=== PATIENT | female | born 1960 | race Caucasian/White ===

== ENCOUNTER 2017-05-27 08:03 | Outpatient (CLI) | payer BC ==
--- NOTE | 2017-05-27 17:17 | MRI Report ---
EXAM: RIGHT KNEE MRI WITHOUT CONTRAST EXAM DATE: 05/27/2017 09:57 AM. CLINICAL HISTORY: Right knee pain. Sudden onset 10 days ago. COMPARISON: None. TECHNIQUE: Multiplanar, multisequence T1-weighted and fluid-sensitive sequences of the knee without c ontrast. Other: None. FINDINGS: Bones and articular cartilage: Mild focal subcortical marrow edema and grade 2 chondromalacia at the medial patellar facet. Tiny partial-thickness articular cartilage fissure at the lateral patellar fac et. Focal moderate to severe cartilage thinning and a small subchondral osteophyte at the posterior s uperior nonweightbearing aspect of the lateral femoral condyle. Grade 2 chondromalacia at the medial femoral condyle. Enthesophytes at the anterosuperior aspect of the patella Medial Meniscus: The medial meniscus is intact. Lateral Meniscus: The lateral meniscus is intact. Cruciate Ligaments: The anterior and posterior cruciate ligaments are intact. Collateral Ligaments: The medial collateral and lateral collateral ligamentous structures are intact. Tendons: Mild tendinosis of the quadriceps tendon. Patellar tendon is unremarkable. Semimembranosus a nd popliteus tendons are unremarkable. Musculature: No edema or fatty atrophy. Other: Very small joint effusion. No popliteal cyst. No loose bodies. The medial and lateral retinac florencia are intact. The subcutaneous tissues and fat pads are unremarkable. IMPRESSION: 1. Tricompartmental chondromalacia as described above. 2. No evidence of ligament or meniscal injury. 3. Mild quadriceps tendinosis. 4. Very small joint effusion. [facility] MUSCULOSKELETAL RADIOLOGY SECTION Referring Provider Line: [phone] SITE ID: [id number]
== END 2017-05-27 08:04 | disposition home or self-care (01) ==
LOC: DI 08:03
PROVIDERS: ATTEND Internal Medicine
DX: M94.261 Chondromalacia, right knee (principal); M25.461 Effusion, right knee

== ENCOUNTER 2017-06-03 11:34 | Outpatient (CLI) | payer BC ==
--- NOTE | 2017-06-04 17:49 | Mammography Report ---
DIGITAL SCREENING MAMMOGRAM: 06/03/2017 CLINICAL INDICATION: A 57-year-old nulliparous patient with family history of breast cancer for scre ening. COMPARISON: 05/2016, 05/2015, 04/2014, 10/2012. TECHNIQUE: Routine CC and MLO projections as well as bilateral laterally exaggerated craniocaudal vi ews were obtained of the breasts. The breasts again demonstrate heterogeneously dense fibroglandular parenchyma bilaterally. Coarse an d punctate, typically benign calcifications are present. No suspicious masses, clustered microcalcif ications, or regions of architectural distortion are identified. IMPRESSION: BENIGN FINDINGS. RECOMMENDATION: ROUTINE ANNUAL SCREENING UNLESS OTHERWISE CLINICALLY INDICATED. BIRADS CATEGORY: 2, BENIGN FINDINGS. STANDARD QUALIFYING STATEMENTS 1. This examination was reviewed with the aid of Computed-Aided Detection (CAD). 2. A negative or benign imaging report should not delay biopsy if clinically suspicious findings are present. Consider surgical consultation if warranted. More than 5% of cancers are not identified b y imaging. 3. Dense breasts may obscure an underlying neoplasm. JOB #: [id number] EXT JOB #:[id number]
== END 2017-06-03 11:35 | disposition home or self-care (01) ==
LOC: DI.S 11:34
PROVIDERS: ATTEND Internal Medicine
DX: Z12.31 Encounter for screening mammogram for malignant neoplasm of breast (principal); Z80.3 Family history of malignant neoplasm of breast
CPT/HCPCS: 77067

== ENCOUNTER 2017-06-03 11:36 | Outpatient (CLI) | payer BC ==
--- NOTE | 2017-06-03 14:18 | XRAY Report ---
THREE-VIEW RIGHT KNEE: 06/03/2017 CLINICAL HISTORY: Pain. FINDINGS: AP, lateral, sunrise views of the right knee demonstrate no evidence of fracture or disloc ation. No effusion is present. The joint spaces appear unremarkable. IMPRESSION: NORMAL RIGHT KNEE. JOB #: [id number] EXT JOB #:[id number]
== END 2017-06-03 11:37 | disposition home or self-care (01) ==
LOC: DI.S 11:36
PROVIDERS: ATTEND Orthopaedic Surgery
DX: M25.561 Pain in right knee (principal)

== ENCOUNTER 2018-02-01 17:06 | Outpatient (CLI) | payer OTHER ==
--- NOTE | 2018-02-02 10:50 | XRAY Report ---
RIGHT HIP AND PELVIS: 02/01/2018 INDICATION: Right hip pain. FINDINGS: Frontal view of the hips and pelvis and frogleg lateral view of the right hip demonstrate no evidence of fracture or dislocation. Mild osteoarthritis is present. No foreign body is seen in the soft tissues. IMPRESSION: MILD RIGHT HIP OSTEOARTHRITIS. TD: 02/02/2018 10:49
--- NOTE | 2018-02-02 10:50 | XRAY Report ---
TWO VIEW LUMBAR SPINE: 02/01/2018 CLINICAL INDICATION: Pain. FINDINGS: AP, lateral views of the lumbar spine demonstrate mild degenerative disk disease and moderate facet arthropathy. Minimal levoscoliosis is present. There is no evidence of compression fracture. The bowel gas pattern appears unremarkable. There is a 4 mm calcification overlying the left renal shadow, suspicious for nephrolithiasis. IMPRESSION: DEGENERATIVE CHANGES IN THE LUMBAR SPINE. LIKELY LEFT NEPHROLITHIASIS. TD: 02/02/2018 10:49
== END 2018-02-01 17:07 | disposition home or self-care (01) ==
LOC: DI 17:06
PROVIDERS: ATTEND Internal Medicine
DX: M51.36 Other intervertebral disc degeneration, lumbar region (principal); M47.896 Other spondylosis, lumbar region; M16.11 Unilateral primary osteoarthritis, right hip
CPT/HCPCS: 72100

== ENCOUNTER 2018-05-11 07:42 | Outpatient (CLI) | payer OTHER ==
--- NOTE | 2018-05-11 14:55 | MRI Report ---
Procedure Date: 05/11/2018 Accession Number: [id number] / [id number] Procedure: MRI - Lumbar Spine W/O CPT Code: FULL RESULT: EXAM: MRI LUMBAR SPINE WITHOUT CONTRAST EXAM DATE: 05/11/2018 08:31 AM. CLINICAL HISTORY: Sciatica. COMPARISON: Lumbar spine radiographs 02/01/2018. TECHNIQUE: Multiplanar, multisequence T1-weighted and fluid-sensitive sequences of the lumbar spine without contrast. Other: None. FINDINGS: On the comparison radiographs incompletely visualized is an at least 12 mm T2 hypointense focus which appears to demonstrate some T1 shortening in the right kidney on the last image of the examination. The distal tip of the conus medullaris is seen at the level of the L2 vertebral body. No suspicious marrow replacement is present. Minimal grade 1 anterolisthesis of L5 relative to S1 and L4 relative to L5 is present. T10 through T12: No posterior disk protrusion. T12-L1: A minimal subligamentous central disk protrusion is seen. L1-L2: No posterior disk protrusion. L2-L3: A minimal posterior disk protrusion is seen. Superimposed is a shallow protrusion on the right involving the far lateral aspect of the foramen and far lateral margin of the disk. Disk material attenuates the fat surrounding the right L2 nerve root after it exits the foramen. No central canal or foraminal stenosis is present. L3-L4: A minimal shallow foraminal protrusion is seen bilaterally, greater on the left relative to the right. There is a far lateral component to the disk protrusion on the left. No central canal or foraminal stenosis is present. L4-L5: A shallow left posterolateral, foraminal, and far lateral protrusion is seen. There is left foraminal narrowing without overt foraminal stenosis. Disk material attenuates the fat surrounding the left L4 nerve root as it exits the foramen. Superior lateral recess stenosis is seen on the left. L5-S1: A mild broad-based posterior disk protrusion is seen. This is greatest in the midline. No foraminal stenosis is present. Facet/ligamentum flavum hypertrophy is seen throughout the lumbar spine, greatest in the mid and lower lumbar spine. IMPRESSION: 1. Minimal degenerative disk disease is seen at T12-L1 and from L2 through L5. 2. Mild degenerative disk disease is seen at L5-S1. 3. A far lateral disk protrusion on the left at L4-L5 attenuates the fat surrounding the L4 nerve root after it exits the foramen. 4. A far lateral component to the disk protrusion at L2-L3 on the right attenuates the fat surrounding the right L2 nerve root after it exits the foramen. 5. Superior lateral recess stenosis is seen on the left at L4-L5. 6. A T2 hypointense mass is present in the right kidney. This is not the typical appearance of a simple renal cortical cyst. This could reflect a hemorrhagic or proteinaceous cyst. Renal ultrasound would be advised to exclude a solid renal lesion in the right kidney. 7. 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 Comment: The following findings are so common in adults without low back pain that while we report their presence, they must be interpreted with caution and in the context of the clinical situation. (Reference Dalik et al, Spine 2001) Prevalence of findings in patients without low back pain: Disk degeneration (any evidence): 92% Disk desiccation/T2 signal loss: 83% Disk height loss: 56% Disk bulge: 64% Disk protrusion: 32% Annular tear/high intensity zone: 38% [facility]
== END 2018-05-11 07:43 | disposition home or self-care (01) ==
LOC: DI 07:42
PROVIDERS: ATTEND Internal Medicine
DX: M51.26 Other intervertebral disc displacement, lumbar region (principal); M51.36 Other intervertebral disc degeneration, lumbar region; M51.25 Other intervertebral disc displacement, thoracolumbar region; M51.35 Other intervertebral disc degeneration, thoracolumbar region; M51.37 Other intervertebral disc degeneration, lumbosacral region; N28.89 Other specified disorders of kidney and ureter; I72.3 Aneurysm of iliac artery
CPT/HCPCS: 72148

== ENCOUNTER 2018-07-19 15:00 | Outpatient (CLI) | payer OTHER ==
--- NOTE | 2018-07-20 14:56 | Mammography Report ---
Reason: SCREENING MAMMO Procedure Date: 07/19/2018 Accession Number: [id number] / [id number] Procedure: JEF - Screening Mammo Dig Bilat CPT Code: FULL RESULT: EXAM: Screening Mammo Dig Bilat DATE: 07/19/2018 3:28 PM CLINICAL HISTORY: Screening mammogram TECHNIQUE: Bilateral CC and MLO views were obtained. COMPARISON: Mammogram 06/03/2017 FINDINGS: The breast parenchyma is heterogeneously dense which may limit the sensitivity of mammography. No suspicious masses, clustered microcalcifications, or regions of architectural distortion are identified. There are benign-appearing lymph nodes. IMPRESSION: Benign findings RECOMMENDATION: Routine annual screening unless otherwise clinically indicated. BIRADS CATEGORY 2: Benign findings STANDARD QUALIFYING STATEMENTS: 1. This examination was reviewed with the aid of Computer-Aided Detection (CAD). 2. A negative or benign imaging report should not delay biopsy if clinically suspicious findings are present. Consider surgical consultation if warrented. More than 5% of cancers are not identified by imaging. 3. Dense breasts may obscure an underlying neoplasm.
== END 2018-07-19 15:01 | disposition home or self-care (01) ==
LOC: DI 15:00
PROVIDERS: ATTEND Internal Medicine
DX: Z12.31 Encounter for screening mammogram for malignant neoplasm of breast (principal)
CPT/HCPCS: 77067

== ENCOUNTER 2019-07-14 07:18 | Outpatient (CLI) | payer OTHER ==
[2019-07-14 10:07] LABS: BASOPHILS % (AUTO) 0.2 %; EOSINOPHILS # (AUTO) 0.1 10^3/uL (0.0-0.7); EOSINOPHILS % (AUTO) 2.2 %; HGB - HEMOGLOBIN 16.3 g/dL (12.0-16.0); LYMPHOCYTES # (AUTO) 1.7 10^3/uL (1.5-3.5); LYMPHOCYTES % (AUTO) 34.1 %; MEAN CORPUSCULAR HEMOGLOBIN 30.8 pg (27.0-31.0); MEAN CORPUSCULAR HGB CONC 34.3 g/dL (32.0-36.0); MEAN CORPUSCULAR VOLUME 89.6 fL (81.0-99.0); MEAN PLATELET VOLUME 9.9 fL (7.9-10.8); MONOCYTES # (AUTO) 0.5 10^3/uL (0.0-1.0); MONOCYTES % (AUTO) 10.4 %; NEUTROPHILS # (AUTO) 2.7 10^3/uL (1.5-6.6); NEUTROPHILS % (AUTO) 52.7 %; PLT - PLATELET COUNT 170 10^3/uL (130-450); RED CELL DISTRIBUTION WIDTH 13.1 % (12.0-15.0); WHITE BLOOD COUNT 5.1 x10^3/uL (4.8-10.8)
[2019-07-14 13:57] LABS: HEMOGLOBIN A1C 0.54 g/dL; HEMOGLOBIN A1C % 5.1 % (4.6-6.2)
[2019-07-14 14:39] LABS: ALBUMIN 4.7 g/dL (3.2-5.5); ALKALINE PHOSPHATASE 64 IU/L (42-121); ALT ALANINE AMINOTRANSFERASE 15 IU/L (10-60); AST ASPARTATE AMINOTRANSFERASE 18 IU/L (10-42); BILIRUBIN,TOTAL 0.7 mg/dL (0.2-1.0); BUN - BLOOD UREA NITROGEN 15 mg/dL (6-20); CALCIUM 9.5 mg/dL (8.5-10.3); CARBON DIOXIDE - CO2 29 mmol/L (21-32); CHLORIDE 102 mmol/L (101-111); CHOL/HDL RATIO 3.8 (<4.4); CHOLESTEROL 145 mg/dL; CK- CREATINE KINASE 55 IU/L (22-269); CREATININE 0.8 mg/dL (0.4-1.0); GFR - MDRD 73 (>89); GLUCOSE 96 mg/dL (70-100); HDL CHOLESTEROL 38 mg/dL; LDL CHOLESTEROL,CALCULATED 83 mg/dL; LDL/HDL RATIO 2.2 (<4.4); SODIUM 139 mmol/L (135-145); URIC ACID 6.7 mg/dL (2.6-7.2); VLDL CHOLESTEROL 24 mg/dL
== END 2019-07-14 07:19 | disposition home or self-care (01) ==
LOC: LAB.S 07:18
PROVIDERS: ATTEND Internal Medicine
DX: E78.5 Hyperlipidemia, unspecified (principal); I10 Essential (primary) hypertension; R73.01 Impaired fasting glucose; N20.0 Calculus of kidney; L71.9 Rosacea, unspecified; Z79.899 Other long term (current) drug therapy; M10.9 Gout, unspecified; M81.0 Age-related osteoporosis without current pathological fracture; F41.9 Anxiety disorder, unspecified; F32.9 Major depressive disorder, single episode, unspecified; R00.1 Bradycardia, unspecified; Z12.11 Encounter for screening for malignant neoplasm of colon; Z12.12 Encounter for screening for malignant neoplasm of rectum; Z13.6 Encounter for screening for cardiovascular disorders
CPT/HCPCS: 36415; 80053; 80061; 82306; 82550; 83036; 83721; 84443; 84550; 85025

== ENCOUNTER 2019-07-28 08:00 | Outpatient (CLI) | payer OTHER | END 2019-07-28 23:59 | disposition home or self-care (01) | LOC: LAB.R 08:00 | PROVIDERS: ATTEND Internal Medicine | DX: Z12.11 Encounter for screening for malignant neoplasm of colon (principal); Z12.12 Encounter for screening for malignant neoplasm of rectum; Z79.899 Other long term (current) drug therapy; F41.9 Anxiety disorder, unspecified; M10.9 Gout, unspecified; L71.9 Rosacea, unspecified; I10 Essential (primary) hypertension; F32.9 Major depressive disorder, single episode, unspecified; Z13.6 Encounter for screening for cardiovascular disorders; R00.1 Bradycardia, unspecified | CPT/HCPCS: 82274 ==

== ENCOUNTER 2019-07-28 13:45 | Outpatient (CLI) | payer OTHER ==
--- NOTE | 2019-07-28 15:13 | Mammography Report ---
Reason: SCREENING MAMMO Procedure Date: 07/28/2019 Accession Number: [id number] / [id number] Procedure: JEF - Screening Mammo w/Jack CPT Code: FULL RESULT: EXAM: Screening Mammo w/Jack DATE: 07/28/2019 2:33 PM CLINICAL HISTORY: Routine screening. Nulliparous patient. TECHNIQUE: (B) - Bilateral CC and MLO views were obtained. COMPARISON: 07/19/2018, 06/03/2017, 05/15/2016 and 05/22/2015 PARENCHYMAL PATTERN: (A) - The breasts demonstrate scattered fibroglandular densities bilaterally. FINDINGS: On the left no significant interval change. There are no suspicious masses, calcifications, or areas of distortion. On the right a small nodular density in the 9:00 position 2 cm from the nipple is more apparent than on preceding studies. Additional evaluation by spot compression and true lateral views and possible ultrasound is suggested. No suspicious microcalcifications or architectural distortion on the right IMPRESSION: Incomplete examination. BI-RADS category 0. Needs additional evaluation right breast. Negative left breast. RECOMMENDATION: (AD[facility]) - Additional views using both Mammography and Ultrasound recommended. Right breast BI-RADS CATEGORY: (0) - Incomplete Examination - need additional evaluation. STANDARD QUALIFYING STATEMENTS: 1. This examination was not reviewed with the aid of Computer-Aided Detection (CAD). 2. A negative or benign imaging report should not preclude biopsy if clinically suspicious findings are present. 3. Dense breasts may obscure an underlying neoplasm. 4. This examination was reviewed with the aid of 3D breast imaging (tomosynthesis).
== END 2019-07-28 13:46 | disposition home or self-care (01) ==
LOC: DI 13:45
PROVIDERS: ATTEND Internal Medicine
DX: Z12.31 Encounter for screening mammogram for malignant neoplasm of breast (principal); R92.8 Other abnormal and inconclusive findings on diagnostic imaging of breast
CPT/HCPCS: 77063; 77067

== ENCOUNTER 2019-08-05 10:25 | Outpatient (CLI) | payer OTHER ==
--- NOTE | 2019-08-05 15:09 | Mammography Report ---
Reason: ABNORMAL MAMMO Procedure Date: 08/05/2019 Accession Number: [id number] / [id number] Procedure: JEF - Diag Special Views Dig RT CPT Code: FULL RESULT: EXAM: Diag Special Views Dig RT DATE: 08/05/2019 11:32 AM CLINICAL HISTORY: Diagnostic examination. The patient is recalled from screening for right breast nodule. TECHNIQUE: (R) - Right right spot CC, spot MLO and right ML images are obtained. Focused right breast ultrasound is performed. COMPARISON: 07/28/2019 through 05/22/2015. PARENCHYMAL PATTERN: (A) - The breast(s) demonstrate(s) scattered fibroglandular densities. FINDINGS: The nodule in question at the 9:00 position 2 cm from the nipple is confirmed and appears similar to 2018 but is not definitely established to be stable when compared to 2017 study where breast density was greater. Focused right breast ultrasound demonstrates a well-circumscribed wider than tall complex cyst potentially containing a solid component with clear communication with the ductal system which measures 0.5 x 0.4 cm, 9:00 position 3 cm from the nipple. This probably benign sonographic finding clearly corresponds to the mammographic finding. There are no suspicious masses, calcifications, or areas of distortion. IMPRESSION: Probably Benign. BI-RADS category 3. RECOMMENDATION: (6MOS) - Recommend 6 month follow-up exam. Right breast ultrasound. BI-RADS CATEGORY: (3) - Probably Benign. STANDARD QUALIFYING STATEMENTS: 1. This examination was not reviewed with the aid of Computer-Aided Detection (CAD). 2. A negative or benign imaging report should not preclude biopsy if clinically suspicious findings are present. 3. Dense breasts may obscure an underlying neoplasm. 4. This examination was reviewed with the aid of 3D breast imaging (tomosynthesis).
== END 2019-08-05 10:26 | disposition home or self-care (01) ==
LOC: DI 10:25
PROVIDERS: ATTEND Internal Medicine
DX: R92.8 Other abnormal and inconclusive findings on diagnostic imaging of breast (principal)
CPT/HCPCS: 76642

== ENCOUNTER 2022-02-25 08:00 | Outpatient (CLI) | payer OTHER ==
[2022-02-25 16:20] LABS: BILIRUBIN,URINE NEGATIVE (NEGATIVE); GLUCOSE, URINE (UA) NEGATIVE (NEGATIVE); KETONES,URINE (UA) NEGATIVE (NEGATIVE); LEUKOCYTE ESTERASE, URINE NEGATIVE (NEGATIVE); NITRITE,URINE NEGATIVE (NEGATIVE); OCCULT BLOOD,URINE TRACE-INTA (NEGATIVE); PH,URINE 5.5 PH (5.0-7.5); PROTEIN,URINE NEGATIVE (NEGATIVE); UROBILINOGEN,URINE 0.2 (NORMAL) E.U./dL (NORMAL)
[2022-02-25 16:32] LABS: CLARITY,URINE CLEAR (CLEAR)
[2022-02-25 16:39] LABS: BACTERIA,URINE None Seen /HPF (None Seen); RBC,URINE 0-5 /HPF (0-5); SQUAMOUS EPITHELIAL CELL,UR RARE Squamous (<= Few); WBC,URINE 0-3 /HPF (0-5)
== END 2022-02-25 08:01 | disposition home or self-care (01) ==
LOC: LAB.R 08:00
PROVIDERS: ATTEND Internal Medicine
DX: M54.50 Low back pain, unspecified (principal)
CPT/HCPCS: 81001; 87086

== ENCOUNTER 2022-02-26 10:27 | Outpatient (CLI) | payer OTHER ==
--- NOTE | 2022-02-26 11:14 | CT Report ---
PROCEDURE: Abdomen/Pelvis WO INDICATIONS: FLANK PAIN TECHNIQUE: Noncontrast 5 mm thick sections acquired from the diaphragms to the symphysis. 5 mm coronal and sagi ttal reformats were then performed. For radiation dose reduction, the following was used: automated exposure control, adjustment of mA and/or kV according to patient size. COMPARISON: None. FINDINGS: Image quality: Excellent. ABDOMEN: Lung bases: Lung bases are clear. Heart size is normal. Solid organs: Liver is normal in size. Gallbladder is unremarkable. Pancreas is normal in contours. No adrenal nodules. Spleen is mildly enlarged, measuring 12.5 cm in maximum craniocaudal dimension. Kidneys are normal in size. A 4 mm nonobstructing calculus is seen at the inferior pole of the right kidney. Small 2 mm nonobstructing calculi are seen at the superior pole left kidney. There is a 2.9 x 2.3 cm low-density lesion in the posterior superior pole the right kidney with peripheral calcifica tions. Peritoneum and bowel: Unenhanced bowel loops demonstrate normal wall thickness and caliber. No free fluid or air. Nodes and vessels: No retroperitoneal or mesenteric adenopathy by size criteria. Aorta and inferior vena cava are normal in caliber. Miscellaneous: No ventral hernias. PELVIS: Genitourinary: Bladder wall thickness is normal. Status post hysterectomy. Miscellaneous: No inguinal hernias or adenopathy. Bones: No suspicious bony lesions. No vertebral body compression fractures. IMPRESSION: 1.Bilateral nonobstructing calculi measuring up to 4 mm on the right and 2 mm on the left. No uretera l calculus or hydronephrosis. 2.Indeterminate right renal cyst with peripheral calcifications. Recommend renal protocol MRI or CT f or further evaluation on a nonemergent basis. 3.Mild splenomegaly. Reviewed by: Ihsan Tran MD on 02/26/2022 11:13 AM PDT Approved by: Ihsan Tran MD on 02/26/2022 11:13 AM PDT Station ID: [id number]
== END 2022-02-26 10:28 | disposition home or self-care (01) ==
LOC: DI 10:27
PROVIDERS: ATTEND Internal Medicine
DX: N20.0 Calculus of kidney (principal); N28.1 Cyst of kidney, acquired; R16.1 Splenomegaly, not elsewhere classified; Z90.710 Acquired absence of both cervix and uterus

== ENCOUNTER 2022-04-02 06:12 | Outpatient (CLI) | payer OTHER ==
[2022-04-02 06:34] LABS: CREATININE 0.8 mg/dL (0.4-1.0)
[2022-04-02] MEDS ORDERED: GADOBUTROL 7.5 MMOL/7.5 ML VIAL ONE (07:16)
--- NOTE | 2022-04-02 08:35 | MRI Report ---
PROCEDURE: Abdomen W/WO INDICATIONS: RIGHT RENAL CYST CONTRAST: IV CONTRAST: Gadavist ml: 7 TECHNIQUE: Coronal ultra fast SE, axial 2D spoiled GE in- and [id number]; axial breath-hold T2 fast SE. Dynam ic axial ultra fast GE during the administration of contrast; post-contrast coronal ultra fast GE or 2D spoiled GE with fat saturation from the hepatic dome to the iliac crests. Optional diffusion weig hted imaging and ADC may be performed. COMPARISON: CT dated 02/26/2022 FINDINGS: Image quality: Excellent. Lung bases: No basal pleural effusions. Heart size is normal. Solid organs: Liver and spleen are normal in size and enhancement. Gallbladder is within normal sanchez its Biliary system is non dilated. Pancreas is normal in morphology. No adrenal nodules. Both kid neys demonstrate normal size. As before, there are 2 adjacent lesions within the right interpolar kid zuleima posteriorly which demonstrates intralesional calcifications by CT, the largest of which is more s uperior, measuring roughly 30 mm diameter. This lesion demonstrates elevated diffusion weighted signa l as well peripheral enhancement. There are enhancing internal septae inferiorly within this lesion. The smaller, more inferior lesion within the right interpolar kidney posteriorly measures roughly 15 mm transverse and also demonstrates peripheral enhancement as well as enhancing internal components w hich appear more nodular. Left renal enhancement is within normal limits. Nodes and vessels: No retroperitoneal or mesenteric adenopathy by size criteria. Aorta and inferior vena cava are normal in size. Bowel and peritoneum: Unenhanced bowel loops are normal in caliber. No free fluid. Bones and soft tissues: No ventral hernias. Bone marrow is normal in overall signal. IMPRESSION: 1. 30 mm diameter Bosniak III lesion within the right interpolar kidney. 2. 15 mm diameter Bosniak IV lesion within the right interpolar kidney. 3. Urological consultation is recommended. Reviewed by: Nirav Alvarado MD on 04/02/2022 8:34 AM PDT Approved by: Nirav Alvarado MD on 04/02/2022 8:34 AM PDT Station ID: [id number]
[2022-04-02] MEDS ORDERED: GADOBUTROL 7.5 MMOL/7.5 ML VIAL IVP ONE (16:46)
== END 2022-04-02 06:13 | disposition home or self-care (01) ==
LOC: DI 06:12
PROVIDERS: ATTEND Internal Medicine
DX: N28.1 Cyst of kidney, acquired (principal); Z79.899 Other long term (current) drug therapy
CPT/HCPCS: 36415; 74183; 82565; A9585

== ENCOUNTER 2022-09-29 08:00 | Outpatient (CLI) | payer OTHER ==
[2022-09-29 16:09] LABS: BASOPHILS % (AUTO) 0.4 %; EOSINOPHILS # (AUTO) 0.1 10^3/uL (0.0-0.7); EOSINOPHILS % (AUTO) 1.4 %; HGB - HEMOGLOBIN 15.1 g/dL (12.0-16.0); LYMPHOCYTES # (AUTO) 1.8 10^3/uL (1.5-3.5); LYMPHOCYTES % (AUTO) 31.3 %; MEAN CORPUSCULAR HGB CONC 34.3 g/dL (32.0-36.0); MEAN CORPUSCULAR VOLUME 87.3 fL (81.0-99.0); MEAN PLATELET VOLUME 9.4 fL (7.9-10.8); MONOCYTES # (AUTO) 0.5 10^3/uL (0.0-1.0); MONOCYTES % (AUTO) 9.3 %; NEUTROPHILS # (AUTO) 3.2 10^3/uL (1.5-6.6); NEUTROPHILS % (AUTO) 57.4 %; PLT - PLATELET COUNT 159 10^3/uL (130-450); RED BLOOD COUNT 5.04 10^6/uL (4.20-5.40); RED CELL DISTRIBUTION WIDTH 12.7 % (12.0-15.0); WHITE BLOOD COUNT 5.6 x10^3/uL (4.8-10.8)
== END 2022-09-29 23:59 | disposition home or self-care (01) ==
LOC: LAB.R 08:00
PROVIDERS: ATTEND Internal Medicine
DX: Z01.818 Encounter for other preprocedural examination (principal); N28.89 Other specified disorders of kidney and ureter; D72.819 Decreased white blood cell count, unspecified; D69.6 Thrombocytopenia, unspecified; E04.1 Nontoxic single thyroid nodule
CPT/HCPCS: 85025

== ENCOUNTER 2024-01-15 08:13 | Outpatient (CLI) | payer MEDICARE, BC ==
--- NOTE | 2024-01-15 19:11 | XRAY Report ---
PROCEDURE: Hand 3+V BL INDICATIONS: NUMBNESS IN HANDS TECHNIQUE: 3 view(s) of each hand(s) acquired. COMPARISON: None FINDINGS: Bones: No fractures or dislocations. No suspicious bony lesions. Soft tissues: No suspicious soft tissue calcifications. IMPRESSION: Unremarkable bilateral hand radiographs Reviewed by: Hemant Jones MD on 01/15/2024 6:10 PM [place] Approved by: Hemant Jones MD on 01/15/2024 6:10 PM [facility] Station ID: [id number]
== END 2024-01-15 08:14 | disposition home or self-care (01) ==
LOC: DI.S 08:13
PROVIDERS: ATTEND Internal Medicine
DX: R20.0 Anesthesia of skin (principal)

== ENCOUNTER 2024-06-11 08:00 | Outpatient (CLI) | payer MEDICARE, BC | END 2024-06-11 23:59 | disposition home or self-care (01) | LOC: LAB.S 08:00 | PROVIDERS: ATTEND Emergency Medicine | DX: U07.1 COVID-19 (principal) ==